=== PATIENT | female | born 1930 | race Caucasian/White ===

== ENCOUNTER → 2017-06-02 | Day surgery (SDC) | payer MEDICARE, OTHER ==
[~2017-06-02] MED LIST: ACETAMINOPHEN 325 MG TAB ONE; ACETYLCHOLINE CHL OPHT SOLN 1:100 2 ML VIAL ONE; DEXAMETHASONE SOD PHOS 4 MG/ML VIAL ONE; EPINEPHrine HCL (1:1000) 1 MG/ML VIAL ONE; LACTATED RINGER'S 1000 ML INJ 1,000 ML ONE; MOXIFLOXACIN 0.5% OPHT SOLN 3 ML BTL ONE; PHENYLEPHRINE HCL 10% OPTH SOLN 5 ML BTL ONE; PROPOFOL 200 MG/20 ML AMP IV ONE; SODIUM CHLORIDE 0.9% INJ 10 ML ONE; TETRACAINE 0.5% OPTH SOLN 4 ML BTL ONE; TOBRAMYCIN/DEXAMETHASONE OPTH OINT 3.5 GM TUBE ONE; TRIAMCINOLONE ACETONIDE 40 MG/ML VIAL ONE; ceFAZolin INJ 1,000 MG VIAL ONE; prednisoLONE ACETATE 1% OPHT SUSP 5 ML BTL ONE
--- NOTE | 2017-06-09 00:15 | TN ---
cc: JULIO COHEN MD DATE OF SURGERY: 06/02/2017 PREOPERATIVE DIAGNOSIS: Dislocated posterior chamber intraocular lens and capsular complex, vitreous hemorrhage right eye. POSTOPERATIVE DIAGNOSIS Dislocated posterior chamber intraocular lens and capsular complex, vitreous hemorrhage right eye. PROCEDURE Pars plana vitrectomy, explantation of posterior chamber intraocular lens, insertion of anterior chamber intraocular lens, removal vitreous hemorrhage, endolaser, right eye. COMPLICATIONS None BLOOD LOSS Less than [address] Webster. General INDICATIONS FOR PROCEDURE This is a delightful patient who suffered a significant vision loss and was found to have a dislocated posterior chamber intraocular lens and capsular complex, and significant vitreous hemorrhage. Vitreous hemorrhage precluded adequate view of the posterior pole and the patient elected for surgical correction. The patient is aware of the risks, benefits and alternatives and wished to proceed. PROCEDURE NOTE After informed consent was obtained, the patient was brought to the operating room. General anesthesia was established. The right eye was prepped and draped in sterile fashion with Betadine in the conjunctival fornix. A three port pars plana vitrectomy was established with self-retaining infusion cannula. Core vitreous was evacuated along with vitreous hemorrhage and peripheral retinal traction. The dislocated posterior chamber intraocular lens along with the capsule was brought into the anterior chamber. The scleral tunnel was fashioned with a crescent blade and keratome. The posterior chamber intraocular lens was explanted and an anterior chamber intraocular lens MTA 4U0 17.0 diopter power was inserted into the anterior chamber and rotated into position. A peripheral iridectomy was made with the vitrector. Scleral vitrectomy examination revealed areas of peripheral holes which were treated with endolaser. No other retinal holes, tears or detachments were seen. Intravitreal Kenalog was instilled. Trocars removed and sclerotomies closed. The scleral tunnel was closed with 7-0 Vicryl suture. The subconjunctival injection of Ancef and dexamethasone were given. The eye was patched with Tobramycin ointment. The patient brought to recovery room in stable condition. He will continue followup with [facility] for his postoperative care. MD KANDACE Pires/KING /7:50 PM /11:57 PM
== END | disposition home or self-care (01) ==
LOC: ESDC 11:22
PROVIDERS: ATTEND Ophthalmology
DX: T85.22XA Displacement of intraocular lens, initial encounter (principal); H43.11 Vitreous hemorrhage, right eye; H33.321 Round hole, right eye
CPT/HCPCS: 00142; 00145; 66985; 67040; 67121; J0171; J0690; J1100; J3010; J3301; J7120; V2630